=== PATIENT | male | born 1960 | race Caucasian/White ===

== ENCOUNTER → 2021-01-09 09:26 | Outpatient (CLI) | payer OTHER, SELFPAY ==
[2021-01-09 12:15] LABS: COVID19 -Nasal RAPID Negative (Negative)
== END ==
PROVIDERS: PCP Nurse Practitioner Family; Visit Provider Surgery
DX: Z01.812 Encounter for preprocedural laboratory examination (principal); Z20.822 Contact with and (suspected) exposure to COVID-19
CPT/HCPCS: 87635; C9803

== ENCOUNTER 2021-01-12 08:56 | Day surgery (SDC) | payer OTHER, SELFPAY ==
[2021-01-12 09:11] VITALS: BP 151/98; PULSE 62; RESP 16; TEMP 36.1; O2SAT 99; BMI 23.6
[2021-01-12] MEDS: LACTATED RINGERS 1,000 ML 200 ML IV (09:25)
--- NOTE | 2021-01-12 10:09 | P.HP_ITS ---
History of Present Illness History of Present Illness Date Patient Seen: 01/12/21 Time Patient Seen: 10:09 Chief complaint: SDC Narrative: The patient presents for colorectal sreening. Previous colonoscopy demonstrated benign polyps 5-10 years ago. No personal or family history of colon cancer. He has had occasional episodes of abdominal bloating constipation and diarrhea however no blood per rectum. Patient History Medical History Bowel habit changes (04/2020) Surgical History History of hernia repair (2017) Family & Social History Social History: household members spouse Tobacco & Substance use: Smoking Status Never smoker alcohol intake current alcohol intake frequency a few times a week Meds Home Medications and Allergies Home Medications Medication Instructions Recorded Confirmed Type atenolol 25 mg tablet 25 mg PO DAILY 11/11/20 11/11/20 History coenzyme Q10-red yeast rice 25 1 cap PO .qd cap 11/11/20 11/11/20 History mg-600 mg capsule Allergies Allergy/AdvReac Type Severity Reaction Status Date / Time No Known Drug Allergies Allergy Unverified 11/11/20 11:06 Review of Systems Review of Systems ROS: Yes All systems reviewed with the patient and are negative except as o therwise documented Exam Vital Signs (past 8 hours): - 01/12/21 09:11 Temperature 96.9 F L Pulse Rate 62 Respiratory Rate 16 Blood Pressure 151/98 H Pulse Oximetry 99 Oxygen Delivery Method Room Air Narrative Exam Narrative: Constitutional-he is oriented to person, place and time. No apparent distress Cardiovascular- regular rate, no peripheral edema Pulmonary-unlabored respiratory effort, no audible wheezing Abdominal-soft, non-tender, non-distended Musculoskeletal-no cyanosis or clubbing Neurological-nonfocal, normal strength throughout, Skin-warm and dry Assessment & Plan Assessment and plan (1) Personal history of colonic polyps: Status: Acute Assessment & Plan narrative: The patient requires colorectal screening and colonoscopy is recommended. Technical details were discussed. Risks, benefits, alternatives explained. Risks including but not limited to myocardial infarction, aspiration, bleeding, pain, missed lesion, incomplete examination, need for further radiographic studies, colonic perforation, and need for major abdominal surgery were discussed. All questions were answered to their s atisfaction, and they are in agreement with this plan. Time Spent With Patient Critical Care time: I spent a total of [] minutes of critical care time on this patient's care today; this time is exclusive of procedural time.
[2021-01-12] MEDS: fentaNYL 250 MCG/5 ML INJ IV (10:18)
[2021-01-12] MEDS: MIDAZOLAM 5 MG/5 ML VIAL IV (10:25)
[2021-01-12 10:40] VITALS: BP 113/78; PULSE 59; RESP 8; TEMP 36.8; O2SAT 93
--- NOTE | 2021-01-12 10:40 | PM.OP.ENDO ---
Operative Date/Time/Diagnoses Date of procedure: 01/12/21 Time of procedure: 10:40 Pre-op diagnosis: Personal history of colonic polyps Post-op diagnosis: same Procedure & Clinicians Study performed: Colonoscopy Same procedure as scheduled: Yes Indications: Personal history of colonic polyps Surgeon: Hernan Gleason Procedure Notes Procedure in detail: Medications: Conscious sedation using 5mg IV midazolam and 100mcg IV of fentanyl The history and physical was performed/updated and the patient is ASA class is 2. The procedure was discussed in detail with the patient. Potential risks complications including infection, bleeding, missed diagnosis, perforation, need for surgery, and were explained. Their questions were answered and informed consent was obtained. Patient was brought to the procedure room and placed standard monitoring equipment. The patient's vital signs were monitored continuously throughout the entire procedure. Prior to starting time-out was performed. The patient was placed in the left lateral recumbent position. Procedural sedation was administered. Examination began with a thorough inspection of the perianal area there was no evidence of fissures, fistulae, external hemorrhoids or cutaneous malignancy. The colonoscopy scope was then placed into the anal canal and was advanced to the cecum, which was identified by the ileocecal valve, the appendiceal orifice and the confluence of the taenia. The scope was then slowly withdrawn examining colon thoroughly in all directions, irrigating it of any residual stool. FINDINGS 1. No masses or polyps 2. Sigmoid diverticulosis 3. Grade 2 internal hemorrhoids The patient tolerated the procedure well. They will be discharged once criteria are met. The prep was of good/excellent quality. The withdrawl time was 7 minutes. The sedation time was 18 minutes. Specimen(s): none sent Complications: none Impression: Normal colonoscopy Post-procedure Recommendations: Colonscopy in 10 years Disposition: same day surgery
[2021-01-12 10:45] VITALS: BP 108/70; PULSE 59; RESP 10; O2SAT 93
[2021-01-12 10:50] VITALS: BP 103/69; PULSE 57; RESP 10; O2SAT 93
[2021-01-12 10:52] VITALS: BP 119/85; PULSE 60; RESP 12; TEMP 36.8; O2SAT 96
[2021-01-12 10:55] VITALS: BP 114/86; PULSE 63; RESP 16; TEMP 36.7; O2SAT 96
== END 2021-01-12 11:18 | disposition home or self-care (01) ==
PROVIDERS: PCP Nurse Practitioner Family; Referring Provider Surgery; Visit Provider Surgery
PROC: 0DJD8ZZ Inspection of Lower Intestinal Tract, Via Natural or Artificial Opening Endoscopic (ICD-10-PCS; CPT 45378; principal; 2021-01-12 10:00)
DX: Z12.11 Encounter for screening for malignant neoplasm of colon (principal); Z86.010 Personal history of colon polyps; K57.30 Diverticulosis of large intestine without perforation or abscess without bleeding; K64.1 Second degree hemorrhoids
CPT/HCPCS: 45378; 99152; J2250; J3010

== ENCOUNTER → 2021-03-09 07:29 | Outpatient (CLI) | payer OTHER, SELFPAY ==
[2021-03-09 08:39] LABS: Hematocrit 45.8 % (41-53); Hemoglobin 15.5 g/dL (13.5-17.5); Mean Corpuscular HGB Conc 33.9 % (30-36); Mean Corpuscular Volume 85.7 fL (80-100); Platelet Count 183 X10^3/uL (150-400); Red Blood Cell Count 5.34 X10^6/uL (4.5-5.9); Red Cell Distribution Width 13.9 % (11.6-14.8)
[2021-03-09 08:45] LABS: Alanine Aminotransferase 29 IU/L (<50); Albumin 4.4 g/dL (3.5-5.0); Albumin Globulin Ratio 1.9 (1.0-2.8); Alkaline Phosphatase 45 U/L (38-126); Aspartate Aminotransferase 34 IU/L (17-59); BUN Creatinine Ratio 23.8 (6-22); Bilirubin Total 0.7 mg/dL (0.2-1.3); Blood Urea Nitrogen 20 mg/dL (9-20); Calcium 9.4 mg/dL (8.4-10.2); Carbon Dioxide 33 mmol/L (22-32); Chloride 101 mmol/L (98-107); Cholesterol 163 mg/dL (140-199); Estimated Glomerular Filt Rate > 60.0 mL/min (>60); Globulin 2.3 g/dL (1.7-4.1); Glucose 95 mg/dL (80-110); HDL Cholesterol 65 mg/dL (40-60); HEMOLYSIS < 15 (0-50); LDL Cholesterol Calculated 84 mg/dL (<100); Potassium 4.7 mmol/L (3.4-5.1); Sodium 138 mmol/L (137-145); Total Protein 6.7 g/dL (6.3-8.2); Triglycerides 68 mg/dL (35-150)
[2021-03-09 09:15] LABS: Prostate Specific Antigen Scrn 1.92 ng/mL (0.1-4.0)
== END ==
PROVIDERS: PCP Nurse Practitioner Family; Referring Provider Nurse Practitioner Family; Visit Provider Nurse Practitioner Family
DX: Z00.00 Encounter for general adult medical examination without abnormal findings (principal); Z12.5 Encounter for screening for malignant neoplasm of prostate; Z13.6 Encounter for screening for cardiovascular disorders
CPT/HCPCS: 36415; 80053; 80061; 85027; G0103

== ENCOUNTER 2022-05-07 14:41 | Observation (INO) | payer OTHER, SELFPAY ==
[2022-05-07] VITALS (46 sets, daily range): BP systolic 113–176; BP diastolic 73–108; PULSE 56–80; RESP 8–37; TEMP 35.9–36.7; O2SAT 94–100; BMI 24.4; BMI 24.3
--- NOTE | 2022-05-07 14:49 | DI.RAD.S_ITS ---
PROCEDURE: XR CHEST 1V INDICATIONS: chest pain TECHNIQUE: One view of the chest was acquired. COMPARISON: None. FINDINGS: Surgical changes and devices: None. Lungs and pleura: Lungs are clear. No pleural effusions or pneumothorax. Mediastinum: Mediastinal contours appear normal. Heart size is normal. Bones and chest wall: No suspicious bony lesions. Overlying soft tissues appear unremarkable. IMPRESSION: No acute cardiopulmonary abnormality. Dictated by: Marcus Magaña M.D. on 05/07/2022 at 15:23 Approved by: Marcus Magaña M.D. on 05/07/2022 at 15:24
[2022-05-07 15:05] LABS: Add Manual Diff / Slide Review NO; Basophils Absolute Auto 100 /uL (0-100); Basophils Percent Auto 0.9 % (0-2); Eosinophils Absolute Auto 100 /uL (0-450); Eosinophils Percent Auto 1.4 % (2-4); Hematocrit 46.8 % (41-53); Hemoglobin 15.7 g/dL (13.5-17.5); Lymphocytes Absolute Auto 1500 /uL (1100-4500); Lymphocytes Percent Auto 25.9 % (25-40); Mean Corpuscular HGB Conc 33.6 % (30-36); Mean Corpuscular Volume 86.2 fL (80-100); Monocytes Absolute Auto 400 /uL (0-900); Monocytes Percent Auto 7.7 % (3-14); Neutrophils Absolute Auto 3700 /uL (1500-7000); Neutrophils Percent Auto 64.1 % (50-75); Platelet Count 199 X10^3/uL (150-400); Red Blood Cell Count 5.43 X10^6/uL (4.5-5.9); Red Cell Distribution Width 14.3 % (11.6-14.8); White Blood Cell Count 5.7 X10^3/uL (4.5-11.0)
[2022-05-07 15:13] LABS: INR 1.1 (0.9-1.3); Prothrombin Time 12.4 SECONDS (10.1-12.7)
[2022-05-07 15:15] LABS: PTT Partial Thromboplastin Tim 31 SECONDS (26-36)
[2022-05-07 15:20] LABS: Alanine Aminotransferase 33 IU/L (<50); Albumin 4.8 g/dL (3.5-5.0); Albumin Globulin Ratio 1.5 (1.0-2.8); Alkaline Phosphatase 54 U/L (38-126); Aspartate Aminotransferase 32 IU/L (17-59); BUN Creatinine Ratio 26.8 (6-22); Bilirubin Total 0.7 mg/dL (0.2-1.3); Blood Urea Nitrogen 22 mg/dL (9-20); Calcium 9.2 mg/dL (8.4-10.2); Carbon Dioxide 31 mmol/L (22-32); Chloride 101 mmol/L (98-107); Creatine Kinase 163 U/L (55-170); Estimated Glomerular Filt Rate > 60 mL/min (>60); Globulin 3.1 g/dL (1.7-4.1); Glucose 91 mg/dL (80-110); HEMOLYSIS < 15 (0-50); Lipase 77 U/L (23-300); Magnesium 2.3 mg/dL (1.6-2.3); Potassium 4.2 mmol/L (3.4-5.1); Sodium 140 mmol/L (137-145); Total Protein 7.9 g/dL (6.3-8.2)
[2022-05-07 15:31] LABS: Troponin I < 0.012 ng/mL (0.01-0.034)
[2022-05-07 15:35] LABS: CKMB % Relative Index 1.6 % (1.5-5.0); Creatine Kinase MB 2.53 ng/mL (<2.37)
--- NOTE | 2022-05-07 16:35 | ED.CHESTPAIN ---
HPI - Chest Pain General Chief Complaint: Chest Pain Stated Complaint: pain on LT side of chest,arm BP 150/100 Time Seen by Provider: 05/07/22 16:06 Source: patient Mode of arrival: Ambulatory Limitations: no limitations History of Present Illness HPI narrative: This is a 61-year-old male with history of atrial fibrillation on atenolol for the past 20 years, patient states he does take an aspirin 81 mg daily but skipped his dose today. Patient states he had left chest pain today checked his blood pressure is 150/100 and on repeat was 150/100 again patient states he had some radiation down his left arm. He states it tight. States it is resolved but when he walked to the bathroom here in the emergency department it did come back. Denies shortness of breath. He has dizziness he states mild has not noticed any association with the chest discomfort. He denies diaphoresis. No nausea no vomiting. No other GI or urinary symptoms. Patient does not have any swelling in his extremities. Patient has had similar episode couple months ago while working on his cabin he states he bruised rib on his right side which definitely cause pain on his left side went down his arm at that time. That time he would started taking an aspirin 81 mg daily. He states his blood pressure has been borderline according to his physician running 120s to 140s, they have discussed changing his atenolol and starting a statin but he is not done so. He states his atenolol was decreased from 50-25 mg several years ago. Patient states he had a treadmill test 10 years ago or more when he was was found to have atrial fibrillation. He never had a heart catheterization. He is had hernia repair 2 or 3 times remotely, appendectomy, and a ankle ORIF remotely. No tobacco, he weaned down from aquatic coffee 2 weeks ago weaned down over 1 week and has been without caffeine for the past 7 days. Family history includes his mom who has history of hypertension alcohol use but of cancer, brother has hypertension dyslipidemia he states drinks too much but has some sort of electrical issue and by his description he be getting a loop recorder and or pacemaker. He states his dad of cancer but did not have any cardiac issues. Related Data Home Medications Medication Instructions Recorded Confirmed coenzyme Q10-red yeast rice 25 1 cap PO .qd 11/11/20 01/07/22 mg-600 mg capsule Previous Rx's Medication Instructions Recorded atenolol 25 mg tablet 25 mg PO DAILY #90 tabs 01/07/22 Allergies Allergy/AdvReac Type Severity Reaction Status Date / Time No Known Drug Allergies Allergy Verified 05/07/22 14:51 Review of Systems Review of Systems ROS Unobtainable: All systems reviewed & are unremarkable except as noted in HPI and below Patient History Medical History Bowel habit changes (04/2020) Hypertension Iliotibial band tendinitis of left side Skin lesions, generalized Surgical History History of hernia repair (2018) Social History household members: spouse Smoking Status: Never smoker alcohol intake: current Smoking Status: Never smoker alcohol intake frequency: a few times a week Substance Use Type: does not use Exam Narrative Exam Narrative: GENERAL: Alert and oriented x three, male in mild distress. HEENT: Head normocephalic, atraumatic, EOMI, pupils reactive, face symmetric, moist mucous membranes NECK: Supple, full range of motion CARDIOVASCULAR: Regular rate and rhythm without murmurs, rubs or gallops. No JVD. No swelling bilateral lower extremities. RESPIRATORY: Breath sounds equal bilaterally, no wheezes rales or rhonchi. No tachypnea. Speaks in full sentences. ABDOMEN: Soft, nontender. Normoactive bowel sounds all 4 quadrants. No guarding or rebound, rigidity, no mass : No CVA tenderness EXTREMITIES: Normal range of motion, no clubbing or edema. Neurovascularly intact NEUROLOGICAL: Cranial nerves II through XII grossly intact. Moving all extremities SKIN: Warm, dry, no petechiae, no rashes or lesions, no erythema, vesicles or skin changes to the torso. Initial Vital Signs Initial Vital Signs: Vital Signs Temperature 98.0 F 05/07/22 14:43 Pulse Rate 66 05/07/22 14:43 Respiratory Rate 14 05/07/22 14:43 Blood Pressure 176/108 H 05/07/22 14:43 Pulse Oximetry 98 05/07/22 14:43 Oxygen Delivery Method 05/07/22 14:43 Scores HEART Score Heart Score history: Moderately Suspicious Heart Score EKG: Normal Heart Score Age: 45-64 years old Heart Score risk factors: 1-2 risk factors Heart Score troponin: < or = to normal limit Heart Score Total: 3 Course Orders Ordered: ED Orders 05/07/22 14:49 XR chest 1V Stat 05/07/22 14:50 Complete Blood Count AUTO DIFF Stat Comprehensive Metabolic Panel Stat Lipase Stat Magnesium Stat Partial Thromboplastin Time Stat Prothrombin Time INR Stat Troponin & CK Cardiac Panel Stat 05/07/22 14:54 EKG-12 Lead Stat 05/07/22 17:06 EKG-12 Lead Stat 05/07/22 17:16 Trop I [Troponin I] Stat Nitroglycerin (Nitroglycerin 0.4 Mg Sl Tab) 0.4 mg SL [id number] PRN PRN Reason: Chest Pain Last Admin: 05/07/22 17:25 Dose: 0.4 mg Documented By: AT Discontinued Medications Aspirin (Aspirin 81 Mg Chew Tab) 324 mg PO NOW ONE Stop: 05/07/22 17:07 Last Admin: 05/07/22 17:17 Dose: 324 mg Documented By: AT Vital Signs Vital signs: Vital Signs - 8 hr 05/07/22 14:43 05/07/22 14:45 05/07/22 14:45 Temperature 98.0 F Pulse Rate 66 69 Respiratory Rate 14 Blood Pressure 176/108 H 176/108 H Pulse Oximetry 98 98 Oxygen Delivery Method Room Air Room Air 05/07/22 15:00 05/07/22 15:00 05/07/22 15:30 Temperature Pulse Rate 59 L Respiratory Rate Blood Pressure 150/90 H 142/83 H Pulse Oximetry 100 Oxygen Delivery Method Room Air 05/07/22 15:30 05/07/22 16:00 05/07/22 16:00 Temperature Pulse Rate 60 62 Respiratory Rate Blood Pressure 135/85 Pulse Oximetry 98 97 Oxygen Delivery Method Room Air Room Air 05/07/22 16:30 05/07/22 16:30 05/07/22 17:25 Temperature Pulse Rate 59 L 62 Respiratory Rate Blood Pressure 131/84 157/105 H Pulse Oximetry 98 Oxygen Delivery Method Room Air 05/07/22 17:00 05/07/22 17:00 05/07/22 17:27 Temperature Pulse Rate 61 60 Respiratory Rate 17 21 Blood Pressure 158/91 H Pulse Oximetry 98 97 Oxygen Delivery Method Room Air 05/07/22 17:30 05/07/22 17:31 05/07/22 17:31 Temperature Pulse Rate 64 67 Respiratory Rate 13 12 Blood Pressure 137/85 Pulse Oximetry 98 97 Oxygen Delivery Method Room Air 05/07/22 17:35 05/07/22 17:35 Temperature Pulse Rate 67 Respiratory Rate 13 Blood Pressure 126/82 Pulse Oximetry 95 Oxygen Delivery Method Room Air MDM - Chest Pain Lab Data Result diagrams: 05/07/22 14:50 05/07/22 14:50 Labs: Lab Results 05/07/22 05/07/22 05/07/22 Range/Units 14:50 14:50 14:50 WBC 5.7 (4.5-11.0) X10^3/uL RBC 5.43 (4.5-5.9) X10^6/uL Hgb 15.7 (13.5-17.5) g/dL Hct 46.8 (41-53) % MCV 86.2 (80-100) fL MCH 29.0 (26-34) PG MCHC 33.6 (30-36) % RDW 14.3 (11.6-14.8) % Plt Count 199 (150-400) X10^3/uL Neut % (Auto) 64.1 (50-75) % Lymph % (Auto) 25.9 (25-40) % [place] % (Auto) 7.7 (3-14) % Eos % (Auto) 1.4 L (2-4) % Baso % (Auto) 0.9 (0-2) % Neut # (Auto) 3700 (9593-6954) /uL Lymph # (Auto) 1500 (4680-7092) /uL [place] # (Auto) 400 (0-900) /uL Eos # (Auto) 100 (0-450) /uL Baso # (Auto) 100 (0-100) /uL PT 12.4 (10.1-12.7) SECONDS INR 1.1 (0.9-1.3) APTT 31 (26-36) SECONDS Sodium 140 (137-145) mmol/L Potassium 4.2 (3.4-5.1) mmol/L Chloride 101 (98-107) mmol/L Carbon Dioxide 31 (22-32) mmol/L BUN 22 H (9-20) mg/dL Creatinine 0.82 (0.66-1.25) mg/dL Estimated GFR > 60 (>60) mL/min BUN/Creatinine Ratio 26.8 H (6-22) Glucose 91 (80-110) mg/dL Calcium 9.2 (8.4-10.2) mg/dL Magnesium 2.3 (1.6-2.3) mg/dL Total Bilirubin 0.7 (0.2-1.3) mg/dL AST 32 (17-59) IU/L ALT 33 (<50) IU/L Alkaline Phosphatase 54 (38-126) U/L Total Creatine Kinase 163 (55-170) U/L CK-MB (CK-2) 2.53 H (<2.37) ng/mL CK-MB (CK-2) Rel Index 1.6 (1.5-5.0) % Troponin I < 0.012 (0.01-0.034) ng/mL Total Protein 7.9 (6.3-8.2) g/dL Albumin 4.8 (3.5-5.0) g/dL Globulin 3.1 (1.7-4.1) g/dL Albumin/Globulin Ratio 1.5 (1.0-2.8) Lipase 77 (23-300) U/L 05/07/22 Range/Units 17:16 WBC (4.5-11.0) X10^3/uL RBC (4.5-5.9) X10^6/uL Hgb (13.5-17.5) g/dL Hct (41-53) % MCV (80-100) fL MCH (26-34) PG MCHC (30-36) % RDW (11.6-14.8) % Plt Count (150-400) X10^3/uL Neut % (Auto) (50-75) % Lymph % (Auto) (25-40) % [place] % (Auto) (3-14) % Eos % (Auto) (2-4) % Baso % (Auto) (0-2) % Neut # (Auto) (6808-2028) /uL Lymph # (Auto) (4985-4939) /uL [place] # (Auto) (0-900) /uL Eos # (Auto) (0-450) /uL Baso # (Auto) (0-100) /uL PT (10.1-12.7) SECONDS INR (0.9-1.3) APTT (26-36) SECONDS Sodium (137-145) mmol/L Potassium (3.4-5.1) mmol/L Chloride (98-107) mmol/L Carbon Dioxide (22-32) mmol/L BUN (9-20) mg/dL Creatinine (0.66-1.25) mg/dL Estimated GFR (>60) mL/min BUN/Creatinine Ratio (6-22) Glucose (80-110) mg/dL Calcium (8.4-10.2) mg/dL Magnesium (1.6-2.3) mg/dL Total Bilirubin (0.2-1.3) mg/dL AST (17-59) IU/L ALT (<50) IU/L Alkaline Phosphatase (38-126) U/L Total Creatine Kinase (55-170) U/L CK-MB (CK-2) (<2.37) ng/mL CK-MB (CK-2) Rel Index (1.5-5.0) % Troponin I < 0.012 (0.01-0.034) ng/mL Total Protein (6.3-8.2) g/dL Albumin (3.5-5.0) g/dL Globulin (1.7-4.1) g/dL Albumin/Globulin Ratio (1.0-2.8) Lipase (23-300) U/L Imaging Data Chest x-ray: Radiologist's Impression: [address] [address] XRay Report Signed Patient: Luis Carlos oJe MR#: [id number] : 1960 Acct:[id number] Age/Sex: 61 / M Date of Service: 05/07/22 Loc: ED Accession Number: [id number] ?? Procedure: XR chest 1V Ordering Provider: Barbi Henderson D.O. PROCEDURE:? XR CHEST 1V ? INDICATIONS:? chest pain ? TECHNIQUE:? One view of the chest was acquired.? ? COMPARISON:? None. ? FINDINGS:? ? Surgical changes and devices:? None.? ? Lungs and pleura:? Lungs are clear.? No pleural effusions or pneumothorax.? ? Mediastinum:? Mediastinal contours appear normal.? Heart size is normal.? ? Bones and chest wall:? No suspicious bony lesions.? Overlying soft tissues appear unremarkable.? ? IMPRESSION:? No acute cardiopulmonary abnormality. ? ? ? Dictated by: Marcus Magaña M.D. on 05/07/2022 at 15:23 ? ? Approved by: Marcus Magaña M.D. on 05/07/2022 at 15:24? ECG Data Attestation: I personally reviewed and interpreted this ECG as follows: Interpretation: Sinus rhythm rate of 63 LA 186 QRS 82 and QTC 403. No acute ST changes or depression noted. T-wave inverted in lead 3 but not appreciated in 2 or AVF. EKG 2. Shows sinus rhythm rate of 60 LA 186 QRS 88 QTC of 404. No acute ST elevation depression noted. Patient's lead 3 appears similar but no changes appreciated in lead 2 or AVF. MDM Narrative Medical decision making narrative: This is a 61-year-old male with left-sided chest pain did radiate down his arm today, patient's pain resolved but then returned after walking to the bathroom. Patient does not have acute EKG changes on initial EKG, CBC, CMP, troponin are negative. Patient CK-MB is 2.53. Patient was hypertensive upon arrival but improved without any intervention to 130/84. Discussed with patient would like to keep for chest pain observation even if after repeating 2nd troponin and EKG there are no additional changes. Discussed with hospitalist, we can do serial troponins and echo but do not have stress testing capabilities until Tuesday morning. Patient is reluctant to stay until Tuesday. Discussed with Cardiology, Dr. Trejo, agrees with plan for serial tropes and echo in the morning with discharge home with plan for just as an outpatient unless there are changes during patient's stay overnight. Re-contacted for Martín who accepts for observation. Discussed with patient and he is agreeable. Discharge Plan Departure Patient Disposition: Admitted as Observation Clinical Impression: Chest pain Prescriptions: No Action co Q10-red yeast rice 25-600 mg capsule 1 cap PO .qd Label Comments: patient took a break but will resume atenolol 25 mg tablet 25 mg PO DAILY Qty: 90 1RF Referrals: Zana Shipman, DO [Primary Care Provider] -
[2022-05-07] MEDS: ASPIRIN 81 MG CHEW TAB 324 MG PO (17:17)
[2022-05-07] MEDS: NITROGLYCERIN 0.4 MG SL TAB SL (17:25)
[2022-05-07 18:00] LABS: Troponin I < 0.012 ng/mL (0.01-0.034)
--- NOTE | 2022-05-07 18:39 | DI.ECHO.S_ITS ---
[facility]---------+ [facility] +---------+ : : [id number] : : : : [id number] : : : : Phone: [phone]---------+ Echocardiogram Report + + :Name: ORION BEARD Study Date: 05/08/2022 Height: 71 in : :[facility] ReadingLocation: Weight: 175 lb : : Gender: Male BSA: 2.0 m2 : :: 1960 Age: 61 yrs BP: 139/86 mmHg: :Reason For Study: CHEST PAIN : :Ordering Physician: LIZET, : :GHULAM SOMMER Performed By: Stefany Husain : :Referring: GHULAM HINDS : + + Interpretation Summary Normal sinus rhythm. Normal LV size, wall thickness, wall motion and LV systolkic function. EF is 60-65%. No valvular abnormalities. Normal chamber sizes. No prior study available for comparison. Procedure: A two-dimensional transthoracic echocardiogram with color flow and Doppler was performed. The study quality was technically adequate. There is no prior echocardiogram noted for this patient. The patient was in sinus rhythm with heart rates between 65-80 bpm during the exam. Left Ventricle: The left ventricle is normal in size. Proximal septal thickening is noted. The ejection fraction is estimated to be 60-65%. Right Ventricle: The right ventricle is normal size. Atria: The left atrial size is normal. Right atrial size is normal. There is no Doppler evidence for an interatrial shunt. Mitral Valve: The mitral valve is normal in structure and function. There is mild mitral regurgitation. Aortic Valve: The aortic valve is trileaflet. The aortic valve opens well. There is no aortic valve stenosis. There is mild aortic regurgitation. Tricuspid Valve: The tricuspid valve leaflets are thin and pliable. There is mild tricuspid regurgitation. The right ventricular systolic pressure is estimated to be at least 32 mmHg based on an estimated right atrial pressure of 3 mm Hg. Pulmonic Valve: The pulmonic valve is not well seen, but is grossly normal. There is mild pulmonic regurgitation. Great Vessels: The aortic root is mildly dilated. The ascending aorta is moderately enlarged. The IVC is of normal diameter and collapses less than 50% with a sniff. This suggests a right atrial pressure of 8 mm Hg. Pericardium/ Pleura There is no pericardial effusion. There is no pleural effusion. MMode/2D Measurements & Calculations LVIDd: 4.1 cm LVOT diam: 2.5 cm LVIDs: 2.9 cm Ao root diam: 4.0 cm FS: 31.1 % asc Aorta Diam: 4.3 cm IVSd: 0.97 cm Ao Arch Diam (Prox Trans): 3.4 cm LVPWd: 0.98 cm LV izaguirre. diameter/BSA (cm/m^2): 2.1 LV sys. diameter/BSA (cm/m^2): 1.4 LA A2 area: 15.3 cm2 RA long axis: 5.6 cm LA A4 area: 17.7 cm2 RA area: 12.9 cm2 LA length (vol): 5.9 cm RA vol: 25.1 ml LA vol: 39.2 ml RA : 12.6 ml/m2 LA vol index: 19.7 ml/m2 IVC diam: 2.0 cm RVD1 (basal): 3.7 cm RVD2 (mid): 3.3 cm Doppler Measurements & Calculations Ao V2 max: 143.1 cm/sec LVOT Max Patrick: 149.3 cm/sec Ao V2 mean: 100.0 cm/sec LV V1 max P.9 mmHg Ao max P.2 mmHg LV V1 VTI: 31.0 cm Ao mean P.6 mmHg VALERY(I,D): 4.8 cm2 Ao V2 VTI: 30.9 cm VALERY(V,D): 5.0 cm2 sev ratio: 1.0 VALERY indexed to BSA (cm^2/m^2): 2.4 MV E max patrick: 82.2 cm/sec TR max patrick: 256.6 cm/sec MV A max patrick: 74.5 cm/sec TR max P.3 mmHg MV E/A: 1.1 PA V2 max: 99.7 cm/sec Med Peak E' Patrick: 5.6 cm/sec PA V2 mean: 69.7 cm/sec E/E' med: 14.6 PA mean P.1 mmHg Lat Peak E' Patrick: 7.9 cm/sec PA pr(Accel): 34.5 mmHg E/E' lat: 10.4 E/e' average: 12.5 MV dec time: 0.21 sec SV(LVOT): 147.3 ml Electronically signed by: Shyla Cesar M.D. on Reading Physician:05/08/2022 12:17 PM
[2022-05-07 19:28] LABS: COVID19 -Nasal RAPID Negative (Negative)
[2022-05-07 20:08] LABS: Hemoglobin A1C% w Est Avg Glu 5.2 % (4.0-6.0)
--- NOTE | 2022-05-07 22:50 | P.HP_ITS ---
History of Present Illness History of Present Illness Date Patient Seen: 05/07/22 Time Patient Seen: 22:50 Chief complaint: pain on LT side of chest,arm BP 150/100 Narrative: Nicolas Joe is 61 y.o. male with a hypertension and a history of being diagnosed with atrial fibrillation in his early 40s, presented to the ED w/chest pain radiating to his left arm. States his blood pressure is normally 120/80s. He took his bp at home and his systolic was in the 150s. He called his PCP's office and was advised to to to the ED. He denies radiation to his jaw, palpit ations, h/a, nausea or vomiting. Chest x-ray indicated no cardiopulmonary abnormality. He is afebrile, blood pressure 113/73 heart rate 67 respiratory rate 16 oxygen saturation of 94% on room air he weighs 79.3 kg with a BMI of 24.4. CBC is unremarkable, coagulation is also unremarkable, his A1c is 5.2, CK-MB is slightly elevated 2.5 3, the 1st 2 troponins were negative and a 3rd 1 is pending for approximately now. COVID- 19 PCR is negative. Patient History Medical History Bowel habit changes (04/2020) Hypertension Iliotibial band tendinitis of left side Skin lesions, generalized Surgical History History of hernia repair (2017) Family & Social History Family History Mother Ovarian cancer Hypertension Father Pancreatic cancer Brother Hypertension Social History: household members spouse Safety & Behavioral: Feels Safe in Current Yes Environment Been Physically Hurt or No Threatened By a Person Tobacco & Substance use: Smoking Status Never smoker alcohol intake current alcohol intake frequency a few times a week Substance Use Type does not use Comment: Recently quit drinking coffee. Meds Home Medications and Allergies Home Medications Medication Instructions Recorded Confirmed Type coenzyme Q10-red yeast rice 25 1 cap PO .qd 11/11/20 01/07/22 History mg-600 mg capsule atenolol 25 mg tablet 25 mg PO DAILY #90 tabs 01/07/22 01/07/22 Rx Allergies Allergy/AdvReac Type Severity Reaction Status Date / Time No Known Drug Allergies Allergy Verified 05/07/22 14:51 Review of Systems Review of Systems ROS: Yes All systems reviewed with the patient and are negative except as otherwise documented Exam Vital Signs (past 8 hours): - 05/07/22 15:00 05/07/22 15:00 05/07/22 15:30 Pulse Rate 59 L Respiratory Rate Blood Pressure 150/90 H 142/83 H Pulse Oximetry 100 Oxygen Delivery Method Room Air 05/07/22 15:30 05/07/22 16:00 05/07/22 16:00 Pulse Rate 60 62 Respiratory Rate Blood Pressure 135/85 Pulse Oximetry 98 97 Oxygen Delivery Method Room Air Room Air 05/07/22 16:30 05/07/22 16:30 05/07/22 17:25 Pulse Rate 59 L 62 Respiratory Rate Blood Pressure 131/84 157/105 H Pulse Oximetry 98 Oxygen Delivery Method Room Air 05/07/22 17:00 05/07/22 17:00 05/07/22 17:27 Pulse Rate 61 60 Respiratory Rate 17 21 Blood Pressure 158/91 H Pulse Oximetry 98 97 Oxygen Delivery Method Room Air 05/07/22 17:30 05/07/22 17:31 05/07/22 17:31 Pulse Rate 64 67 Respiratory Rate 13 12 Blood Pressure 137/85 Pulse Oximetry 98 97 Oxygen Delivery Method Room Air 05/07/22 17:35 05/07/22 17:35 05/07/22 17:40 Pulse Rate 67 Respiratory Rate 13 Blood Pressure 126/82 121/79 Pulse Oximetry 95 Oxygen Delivery Method Room Air 05/07/22 17:40 05/07/22 17:45 05/07/22 17:45 Pulse Rate 63 62 Respiratory Rate 8 L 12 Blood Pressure 127/79 Pulse Oximetry 95 96 Oxygen Delivery Method 05/07/22 17:50 05/07/22 17:50 05/07/22 17:55 Pulse Rate 61 Respiratory Rate 11 L Blood Pressure 133/83 127/80 Pulse Oximetry 97 Oxygen Delivery Method 05/07/22 17:55 05/07/22 18:00 05/07/22 18:00 Pulse Rate 59 L 59 L Respiratory Rate 13 10 L Blood Pressure 124/82 Pulse Oximetry 96 96 Oxygen Delivery Method 05/07/22 18:05 05/07/22 18:05 05/07/22 19:55 Pulse Rate 59 L 59 L Respiratory Rate 10 L 15 Blood Pressure 123/80 Pulse Oximetry 97 97 Oxygen Delivery Method Room Air 05/07/22 19:55 05/07/22 20:00 05/07/22 20:00 Pulse Rate 57 L Respiratory Rate 14 Blood Pressure 127/80 123/82 Pulse Oximetry 98 Oxygen Delivery Method 05/07/22 20:05 05/07/22 20:05 05/07/22 20:10 Pulse Rate 58 L 58 L Respiratory Rate 10 L 17 Blood Pressure 119/79 Pulse Oximetry 97 97 Oxygen Delivery Method 05/07/22 20:10 05/07/22 20:15 05/07/22 20:15 Pulse Rate 58 L Respiratory Rate 15 Blood Pressure 125/83 128/79 Pulse Oximetry 97 Oxygen Delivery Method 05/07/22 20:20 05/07/22 20:20 05/07/22 20:25 Pulse Rate 56 L Respiratory Rate 11 L Blood Pressure 126/80 123/78 Pulse Oximetry 98 Oxygen Delivery Method 05/07/22 20:25 05/07/22 20:30 05/07/22 20:30 Pulse Rate 58 L 58 L Respiratory Rate 14 11 L Blood Pressure 124/79 Pulse Oximetry 97 97 Oxygen Delivery Method 05/07/22 20:35 05/07/22 20:35 05/07/22 20:40 Pulse Rate 59 L Respiratory Rate 10 L Blood Pressure 127/82 122/82 Pulse Oximetry 98 Oxygen Delivery Method 05/07/22 20:40 05/07/22 20:45 05/07/22 20:45 Pulse Rate 60 59 L Respiratory Rate 13 12 Blood Pressure 123/85 Pulse Oximetry 95 96 Oxygen Delivery Method 05/07/22 20:50 05/07/22 20:50 05/07/22 20:55 Pulse Rate 59 L Respiratory Rate 15 Blood Pressure 125/89 127/89 Pulse Oximetry 97 Oxygen Delivery Method 05/07/22 20:55 05/07/22 21:00 05/07/22 21:00 Pulse Rate 72 80 Respiratory Rate 25 H 37 H Blood Pressure 133/92 H Pulse Oximetry 97 95 Oxygen Delivery Method 05/07/22 21:05 05/07/22 21:05 05/07/22 21:10 Pulse Rate 68 Respiratory Rate 17 Blood Pressure 131/82 117/80 Pulse Oximetry 95 Oxygen Delivery Method 05/07/22 21:10 05/07/22 21:15 05/07/22 21:15 Pulse Rate 69 67 Respiratory Rate 16 16 Blood Pressure 118/78 Pulse Oximetry 94 94 Oxygen Delivery Method 05/07/22 21:20 05/07/22 21:20 05/07/22 21:25 Pulse Rate 66 Respiratory Rate 18 Blood Pressure 117/79 119/80 Pulse Oximetry 94 Oxygen Delivery Method 05/07/22 21:25 05/07/22 21:30 05/07/22 21:30 Pulse Rate 67 67 Respiratory Rate 18 16 Blood Pressure 113/79 Pulse Oximetry 94 94 Oxygen Delivery Method 05/07/22 21:35 05/07/22 21:35 05/07/22 21:40 Pulse Rate 67 Respiratory Rate 18 Blood Pressure 119/81 129/80 Pulse Oximetry 94 Oxygen Delivery Method 05/07/22 21:40 05/07/22 21:45 05/07/22 21:45 Pulse Rate 68 67 Respiratory Rate 14 22 Blood Pressure 133/80 Pulse Oximetry 94 94 Oxygen Delivery Method 05/07/22 21:50 05/07/22 21:50 05/07/22 21:55 Pulse Rate 69 Respiratory Rate 17 Blood Pressure 119/75 113/73 Pulse Oximetry 94 Oxygen Delivery Method 05/07/22 21:55 Pulse Rate 67 Respiratory Rate 16 Blood Pressure Pulse Oximetry 94 Oxygen Delivery Method Oxygen Delivery Method Room Air Narrative Exam Narrative: Gen: Alert, oriented, well-developed and healthy appearing 61 y.o. male, NAD HEENT: normocephalic, atraumatic, conjunctiva clear, sclera non-icteric, oral mucosa pink and moist Neck: supple, full ROM, no JVD, trachea is midline Resp: Lungs CTA, non-labored breathing CV: RRR, no murmur or rubs Abd: soft, non-tender, normoactive BTs Skin: no lesions or rashes, dry and intact Neuro: Alert and oriented X 4 w/no focal deficits. Speech clear and coherent. Extremities: moves all 4 extremities, is ambulatory, negative Martín?s sign, no LE edema Psyche: normal mood and affect. Objective Labs Result Diagrams: 05/07/22 14:50 05/07/22 14:50 Labs: Laboratory Results - last 24 hr 05/07/22 05/07/22 05/07/22 14:50 14:50 14:50 WBC 5.7 RBC 5.43 Hgb 15.7 Hct 46.8 MCV 86.2 MCH 29.0 MCHC 33.6 RDW 14.3 Plt Count 199 Neut % (Auto) 64.1 Lymph % (Auto) 25.9 [place] % (Auto) 7.7 Eos % (Auto) 1.4 L Baso % (Auto) 0.9 Neut # (Auto) 3700 Lymph # (Auto) 1500 [place] # (Auto) 400 Eos # (Auto) 100 Baso # (Auto) 100 PT 12.4 INR 1.1 APTT 31 Sodium 140 Potassium 4.2 Chloride 101 Carbon Dioxide 31 BUN 22 H Creatinine 0.82 Estimated GFR > 60 BUN/Creatinine Ratio 26.8 H Glucose 91 Hemoglobin A1c Calcium 9.2 Magnesium 2.3 Total Bilirubin 0.7 AST 32 ALT 33 Alkaline Phosphatase 54 Total Creatine Kinase 163 CK-MB (CK-2) 2.53 H CK-MB (CK-2) Rel Index 1.6 Troponin I < 0.012 Total Protein 7.9 Albumin 4.8 Globulin 3.1 Albumin/Globulin Ratio 1.5 Lipase 77 SARS-CoV-2 (PCR) 05/07/22 05/07/22 05/07/22 14:50 17:16 18:55 WBC RBC Hgb Hct MCV MCH MCHC RDW Plt Count Neut % (Auto) Lymph % (Auto) [place] % (Auto) Eos % (Auto) Baso % (Auto) Neut # (Auto) Lymph # (Auto) [place] # (Auto) Eos # (Auto) Baso # (Auto) PT INR APTT Sodium Potassium Chloride Carbon Dioxide BUN Creatinine Estimated GFR BUN/Creatinine Ratio Glucose Hemoglobin A1c 5.2 Calcium Magnesium Total Bilirubin AST ALT Alkaline Phosphatase Total Creatine Kinase CK-MB (CK-2) CK-MB (CK-2) Rel Index Troponin I < 0.012 Total Protein Albumin Globulin Albumin/Globulin Ratio Lipase SARS-CoV-2 (PCR) Negative Assessment & Plan Assessment & Plan narrative: Nicolas Joe is placed into observation further evaluation and workup of chest pain Chest pain r/o ACS, acute, present on admission ? Echo in am ? Pharmacological stress test recommended as outpatient followup ? Start ASA 81 mg ? Received nitro X 1 in the ED ? EKG shows no ischemic changes ? Trend troponin X 3, first 2 NL Hypertension ? Start/continue motoprolol 25 mg po qam HLD ? Lipid panel, pending ? Start/continue atorvastatin 40 mg po at bedtime Risk stratification ? Fasting lipid panel scheduled for 0500 labs ? A1c 5.2% Other independent historians: , Olimpia Discussion of results, plan of care with independent HCP/other ED provider Reviewed outside records: N/A VTE Prophylaxis: Wells risk score 0 Enoxaparin 40 mg subQ once daily Bilateral SCDs Patient is placed into observation as his stay is not expected to exceed 2 midnights. FEN: IV fluids: saline lock, diet: heart health, labs: CBC, C/BMP, liver enzymes, Mag, PT/INR Consultants None Dispo: probable d/c to home Code status: Full as discussed with the patient who identifies his Olimpia as his surrogate and POA. Advanced care planning 0 minutes. [X] I have utilized all available immediate resources to obtain, update, or review of the patient's current medications VTE Deep Vein Thrombosis/Pulmonary Embolism Present on Admission: No MIPS - Admit I confirm the patient?s Advance Care Plan is present, Code status is documented, Surrogate decision maker is in patient?s record: Yes MIPS - DC The patient has current or prior documentation of left ventricular ejection fraction (LVEF) less than 40%, or moderate or severely depressed left ventricular systolic function.: No COVID-19 COVID-19 status: Negative Result date/Date tested (Pos, Neg/Pending): 05/07/22
[2022-05-08] VITALS (7 sets, daily range): BP systolic 122–139; BP diastolic 85–90; PULSE 66–70; RESP 18; TEMP 35.8–36.1; O2SAT 95–99
[2022-05-08 00:03] LABS: Troponin I < 0.012 ng/mL (0.01-0.034)
[2022-05-08 05:50] LABS: Add Manual Diff / Slide Review NO; Basophils Absolute Auto 0 /uL (0-100); Basophils Percent Auto 0.7 % (0-2); Eosinophils Absolute Auto 100 /uL (0-450); Eosinophils Percent Auto 2.1 % (2-4); Hematocrit 45.2 % (41-53); Hemoglobin 15.1 g/dL (13.5-17.5); Lymphocytes Absolute Auto 1400 /uL (1100-4500); Lymphocytes Percent Auto 25.8 % (25-40); Mean Corpuscular HGB Conc 33.4 % (30-36); Mean Corpuscular Hemoglobin 28.7 PG (26-34); Mean Corpuscular Volume 85.7 fL (80-100); Monocytes Absolute Auto 500 /uL (0-900); Neutrophils Absolute Auto 3400 /uL (1500-7000); Neutrophils Percent Auto 62.4 % (50-75); Platelet Count 188 X10^3/uL (150-400); Red Blood Cell Count 5.27 X10^6/uL (4.5-5.9); White Blood Cell Count 5.5 X10^3/uL (4.5-11.0)
[2022-05-08 06:07] LABS: Alanine Aminotransferase 30 IU/L (<50); Albumin Globulin Ratio 1.6 (1.0-2.8); Alkaline Phosphatase 48 U/L (38-126); Aspartate Aminotransferase 28 IU/L (17-59); BUN Creatinine Ratio 27.6 (6-22); Bilirubin Total 0.7 mg/dL (0.2-1.3); Blood Urea Nitrogen 21 mg/dL (9-20); Calcium 8.6 mg/dL (8.4-10.2); Carbon Dioxide 28 mmol/L (22-32); Chloride 103 mmol/L (98-107); Estimated Glomerular Filt Rate > 60 mL/min (>60); Globulin 2.5 g/dL (1.7-4.1); Glucose 79 mg/dL (80-110); HEMOLYSIS < 15 (0-50); Potassium 3.9 mmol/L (3.4-5.1); Sodium 139 mmol/L (137-145); Total Protein 6.5 g/dL (6.3-8.2)
[2022-05-08 06:09] LABS: Cholesterol 183 mg/dL (140-199); HDL Cholesterol 42 mg/dL (40-60); LDL Cholesterol Calculated 108 mg/dL (<100); Magnesium 2.2 mg/dL (1.6-2.3); Triglycerides 165 mg/dL (35-150)
[2022-05-08 06:35] LABS: TSH w/ Reflex to FT4 3.51 uIU/mL (0.47-4.68)
[2022-05-08] MEDS: METOPROLOL ER 25 MG TABLET PO (08:45)
[2022-05-08] MEDS: ASPIRIN EC 81 MG TABLET PO (08:45)
[2022-05-08] MEDS: ENOXAPARIN 40 MG/0.4 ML SYRINGE SUBCUT (08:45)
--- NOTE | 2022-05-08 13:28 | P.DS_ITS ---
History of Present Illness History of Present Illness Date Patient Seen: 05/08/22 Chief complaint: pain on LT side of chest,arm BP 150/100 Narrative: Per admitting provider, Nicolas Joe is 61 y.o. male with a hypertension and a history of being diagnosed with atrial fibrillation in his early 40s, presented to the ED w/chest pain radiating to his left arm. States his blood pressure is normally 120/80s. He took his bp at home and his systolic was in the 150s. He called his PCP's office and was advised to to to the ED. He denies radiation to his jaw, palpitations, h/a, nausea or vomiting. Chest x-ray indicated no cardiopulmonary abnormality. He is afebrile, blood pressure 113/73 heart rate 67 respiratory rate 16 oxygen saturation of 94% on room air he weighs 79.3 kg with a BMI of 24.4. CBC is unremarkable, coagulation is also unremarkable, his A1c is 5.2, CK-MB is slightly elevated 2.5 3, the 1st 2 troponins were negative and a 3rd 1 is pending for approximately now. COVID- 19 PCR is negative. Discharge Providers Provider Date of admission: 05/07/22 18:34 Discharge Date: 05/08/22 Primary care physician: Zana Shipman DO Discharge provider: Sekou Perez DO Summary Hospital Course Discharge Diagnosis: Chest pain r/o ACS, acute, present on admission Hypertension HLD Possible history of Paroxysmal atrial fibrillation. Hospital Course: This is a 61-year-old male with a past medical history of hypertension and hyperlipidemia, possible prior atrial fibrillation not on AC who presented with left-sided chest pain. Given intermediate risk he was admitted for further sydnee luation, and had serial negative troponins and an unremarkable echocardiogram. He had no recurrence of chest pain. Stress testing was unavailable at [facility] over the weekend (admitted on a Tuesday evening, and there is no availability for transfer over the weekend). Shared decision-making was performed with the patient, whom elected for discharge home at this time given reassuring evaluation pointing towards a low risk chest pain presentation. He does plan to follow-up with his primary care provider this week, and does understand that he will need further risk stratification with outpatient stress testing in the near future. Outpatient non-nuclear stress testing was ordered by me, though he may need another order from his primary care provider depending on his insurance. No medication changes are recommended at the time of discharge. Consider additionally holter monitor given prior reported history of atrial fibrillation (no prior documentation in outpatient notes and only me ntions unknown arrythmia previously) and consideration of stroke prevention with aspirin if atrial fibrillation is confirmed. Telemetry here was unremarkable as was his EKGs. Time Spent with Patient Time spent: Greater than 30 minutes Exam Vital Signs (past 8 hours): - 05/08/22 07:00 05/08/22 08:45 05/08/22 09:58 Temperature 96.5 F L Pulse Rate 68 68 66 Respiratory Rate 18 Blood Pressure 139/86 Pulse Oximetry 95 Oxygen Delivery Method Oxygen Flow Rate 0 05/08/22 08:20 05/08/22 12:00 05/08/22 12:48 Temperature 97 F L Pulse Rate 70 Respiratory Rate 18 Blood Pressure 122/90 Pulse Oximetry 98 97 99 Oxygen Delivery Method Room Air Room Air Oxygen Flow Rate 0 Oxygen Delivery Method Room Air Oxygen Flow Rate 0 Narrative Exam Narrative: Gen: Alert, oriented, well-developed and healthy appearing 61 y.o. male, NAD HEENT: normocephalic, atraumatic, Resp: non-labored breathing CV: RRR Neuro: Alert and oriented X 4 w/no focal deficits. Speech clear and coherent. Extremities: no edema or joint effusions Psyche: normal mood and affect. Objective Labs Result Diagrams: 05/08/22 04:58 05/08/22 04:58 Labs: Laboratory Results - last 24 hr 05/07/22 05/07/22 05/07/22 14:50 14:50 14:50 WBC 5.7 RBC 5.43 Hgb 15.7 Hct 46.8 MCV 86.2 MCH 29.0 MCHC 33.6 RDW 14.3 Plt Count 199 Neut % (Auto) 64.1 Lymph % (Auto) 25.9 [place] % (Auto) 7.7 Eos % (Auto) 1.4 L Baso % (Auto) 0.9 Neut # (Auto) 3700 Lymph # (Auto) 1500 [place] # (Auto) 400 Eos # (Auto) 100 Baso # (Auto) 100 PT 12.4 INR 1.1 APTT 31 Sodium 140 Potassium 4.2 Chloride 101 Carbon Dioxide 31 BUN 22 H Creatinine 0.82 Estimated GFR > 60 BUN/Creatinine Ratio 26.8 H Glucose 91 Hemoglobin A1c Calcium 9.2 Magnesium 2.3 Total Bilirubin 0.7 AST 32 ALT 33 Alkaline Phosphatase 54 Total Creatine Kinase 163 CK-MB (CK-2) 2.53 H CK-MB (CK-2) Rel Index 1.6 Troponin I < 0.012 Total Protein 7.9 Albumin 4.8 Globulin 3.1 Albumin/Globulin Ratio 1.5 Triglycerides Cholesterol LDL Cholesterol, Calc HDL Cholesterol Lipase 77 TSH SARS-CoV-2 (PCR) 05/07/22 05/07/22 05/07/22 14:50 17:16 18:55 WBC RBC Hgb Hct MCV MCH MCHC RDW Plt Count Neut % (Auto) Lymph % (Auto) [place] % (Auto) Eos % (Auto) Baso % (Auto) Neut # (Auto) Lymph # (Auto) [place] # (Auto) Eos # (Auto) Baso # (Auto) PT INR APTT Sodium Potassium Chloride Carbon Dioxide BUN Creatinine Estimated GFR BUN/Creatinine Ratio Glucose Hemoglobin A1c 5.2 Calcium Magnesium Total Bilirubin AST ALT Alkaline Phosphatase Total Creatine Kinase CK-MB (CK-2) CK-MB (CK-2) Rel Index Troponin I < 0.012 Total Protein Albumin Globulin Albumin/Globulin Ratio Triglycerides Cholesterol LDL Cholesterol, Calc HDL Cholesterol Lipase TSH SARS-CoV-2 (PCR) Negative 05/07/22 05/08/22 05/08/22 23:34 04:58 04:58 WBC 5.5 RBC 5.27 Hgb 15.1 Hct 45.2 MCV 85.7 MCH 28.7 MCHC 33.4 RDW 14.0 Plt Count 188 Neut % (Auto) 62.4 Lymph % (Auto) 25.8 [place] % (Auto) 9.0 Eos % (Auto) 2.1 Baso % (Auto) 0.7 Neut # (Auto) 3400 Lymph # (Auto) 1400 [place] # (Auto) 500 Eos # (Auto) 100 Baso # (Auto) 0 PT INR APTT Sodium Potassium Chloride Carbon Dioxide BUN Creatinine Estimated GFR BUN/Creatinine Ratio Glucose Hemoglobin A1c Calcium Magnesium 2.2 Total Bilirubin AST ALT Alkaline Phosphatase Total Creatine Kinase CK-MB (CK-2) CK-MB (CK-2) Rel Index Troponin I < 0.012 Total Protein Albumin Globulin Albumin/Globulin Ratio Triglycerides 165 H Cholesterol 183 LDL Cholesterol, Calc 108 H HDL Cholesterol 42 Lipase TSH SARS-CoV-2 (PCR) 01/05/08/22 05/08/22 04:58 04:58 04:58 WBC RBC Hgb Hct MCV MCH MCHC RDW Plt Count Neut % (Auto) Lymph % (Auto) [place] % (Auto) Eos % (Auto) Baso % (Auto) Neut # (Auto) Lymph # (Auto) [place] # (Auto) Eos # (Auto) Baso # (Auto) PT INR APTT Sodium 139 Potassium 3.9 Chloride 103 Carbon Dioxide 28 BUN 21 H Creatinine 0.76 Estimated GFR > 60 BUN/Creatinine Ratio 27.6 H Glucose 79 L Hemoglobin A1c Calcium 8.6 Magnesium Total Bilirubin 0.7 AST 28 ALT 30 Alkaline Phosphatase 48 Total Creatine Kinase CK-MB (CK-2) CK-MB (CK-2) Rel Index Troponin I Total Protein 6.5 Albumin 4.0 Globulin 2.5 Albumin/Globulin Ratio 1.6 Triglycerides Cholesterol LDL Cholesterol, Calc HDL Cholesterol Lipase TSH 3.51 Cancelled SARS-CoV-2 (PCR) [facility] Medical History Bowel habit changes (04/2020) Hypertension Iliotibial band tendinitis of left side Skin lesions, generalized Surgical History History of hernia repair (2018) Family History Mother Ovarian cancer Hypertension Father Pancreatic cancer Brother Hypertension Social History household members: spouse Smoking Status: Never smoker alcohol intake: current Discharge Plan Discharge Plan Patient Disposition: Home Provider Discharge Comment: You were admitted to the hospital with chest pain. Evaluation thus far has been reassuring with no evidence of heart attack and a normal ultrasound of your heart. Please follow up with PCP office for further evaluation including stress testing. You may need to get an order from Dr. Shipman's office for outpatient stress test. Discharge orders & Medications Prescriptions: Continued co Q10-red yeast rice 25-600 mg capsule 1 cap PO .qd Label Comments: patient took a break but will resume atenolol 25 mg tablet 25 mg PO DAILY Qty: 90 1RF Follow up/Referrals: Zana Shipman DO [Primary Care Provider] - Other Ambulatory Orders: Exercise treadmill NON NUC (Routine) Timeframe: 3 Days Facility: [facility] - Location: Radiology Ordered By: Sekou Perez Diet/Activity/Treatments Diet: Diet as Tolerated Activity: As tolerated Visit Report/Discharge Packet Instructions: Cardiac Stress Test, DI for Atypical Chest Pain, DI for Chest Pain Stand Alone Forms: Patient Portal/API, Stroke Signs & Symptoms Discharge Data Primary Care Provider: Zana Shipman Attending Provider: Sekou Perez VTE Deep Vein Thrombosis/Pulmonary Embolism Present on Admission: No
--- NOTE | 2022-05-08 13:33 | CM.DANOTE ---
DCP: Assessment, Pt is a 61 yo male who admitted to ED on 05/07/2022 via pov with Left sided chest pain related to Acute Coronary Syndrome. He has a hx of Hypertension and per report he was diagnosed with Atrial fibrillation in his 40's. PCP: Zana Shipman Payor: [facility] This CM met with pt in his room with his present. Introduced self and role. He was A+Ox4 and sitting up in bed. Pt confirms that he lives with his in [place], drives at baseline and does not use DME at home. Triple troponin's negative. Echocardiogram pending this am. Pt will have out patient stress test next week. P: Discharge home with today pending echocardiogram results. Kate Mullen RN Case Manager Discharge Planning/Care Management Advanced directive, confirm from FAMILY Start: 05/07/22 23:55 Freq: Q24H Status: Active Protocol: Document 05/08/22 00:00 MS (Rec: 05/08/22 00:27 MS [id number]) Advance Directive, confirm on record Time 00:27 Person contacted Pt Copy received No CM Discharge Assessment Start: 05/08/22 13:21 Freq: Status: Active Protocol: Document 05/08/22 13:31 JS (Rec: 05/08/22 13:33 JS [id number]) Discharge Planning Assessment Assigned [employer] Kate Mullen RN Case Manager Advance Directives? No History Provided By Patient Prior Living Arrangements House Household Members spouse Type of transporation used prior to Drives own vehicle admit Independent with ADL's Yes Is patient alert and oriented? Yes Caregiver for Another No Barriers to Discharge No Discharge Plan Home Transportation Arrangement will transport Referrals Initiated None needed Whiteboard Updated in Patient Room with Yes name and ext. # of [employer] Review Status In Process Next Review Type Continued Stay Review
--- NOTE | 2022-05-08 14:25 | PC.NURSE ---
Day shift: Pt left unit at approx 1415. He wanted to ambulate to car and he did very well. VS WNL. RA 99%. No c/o chest pain. No new MD scripts. Paperwork signed and all questions answered. Pt encouraged to call PCP for out Pt stress test. Pt has all personal belongings. Pt's Spouse in room for teachings and support.
== END 2022-05-08 14:26 | disposition home or self-care (01) ==
LOC: ED 18:28 → AC 18:35
PROVIDERS: Nurse Practitioner Family; Admitting Provider Internal Medicine; Emergency Provider Emergency Medicine; PCP Family Medicine; Referring Provider Emergency Medicine; Visit Provider Internal Medicine
DX: R07.9 Chest pain, unspecified (principal); I48.91 Unspecified atrial fibrillation; E78.5 Hyperlipidemia, unspecified; I10 Essential (primary) hypertension; Z20.822 Contact with and (suspected) exposure to COVID-19
CPT/HCPCS: 36415; 71045; 80053; 80061; 82550; 82553; 83036; 83690; 83735; 84443; 84484; 85025; 85610; 85730; 87635; 93005; 93306; 96372; 99284; C9803; G0378; J1650

== ENCOUNTER → 2022-06-08 07:42 | Outpatient (CLI) | payer OTHER, SELFPAY ==
[2022-05-07 21:00] VITALS: BMI 24.3
--- NOTE | 2022-06-08 07:44 | DI.NM.S_ITS ---
PROCEDURE: NM EXERCISE TREADMILL NON NUC COMPARISON: None. INDICATIONS: Chest Pain. FINDINGS: Rest ECG sinus rhythm. Ramin protocol 10:43, maximum heart rate 164 bpm (104% peak predicted), maximum systolic blood pressure 190, 11.5 METS, BELÉN -29%. Stress ECG sinus tachycardia, no ST segment changes, rare PVCs. IMPRESSION: Low risk study. No evidence of exercise-induced ischemia or arrhythmia. Normal hemodynamic response. Very good exercise capacity. Dictated by: Eva Valentin D.O. on 06/08/2022 at 16:24 Approved by: Eva Valentin D.O. on 06/08/2022 at 16:27
== END ==
PROVIDERS: PCP Family Medicine; Referring Provider Family Medicine; Visit Provider Family Medicine
DX: R07.9 Chest pain, unspecified (principal)
CPT/HCPCS: 93017

== ENCOUNTER → 2024-08-23 06:58 | Outpatient (CLI) | payer MEDICARE, SELFPAY ==
[2022-05-07 21:00] VITALS: BMI 24.3
[2024-08-23 07:45] LABS: Add Manual Diff / Slide Review NO; Basophils Absolute Auto 0 /uL (0-100); Basophils Percent Auto 0.6 % (0-2); Eosinophils Absolute Auto 100 /uL (0-450); Eosinophils Percent Auto 2.2 % (2-4); Hematocrit 46.1 % (41-53); Hemoglobin 15.5 g/dL (13.5-17.5); Lymphocytes Absolute Auto 1400 /uL (1100-4500); Mean Corpuscular HGB Conc 33.6 % (30-36); Mean Corpuscular Hemoglobin 28.5 PG (26-34); Mean Corpuscular Volume 84.8 fL (80-100); Monocytes Absolute Auto 400 /uL (0-900); Monocytes Percent Auto 8.8 % (3-14); Neutrophils Absolute Auto 2800 /uL (1500-7000); Neutrophils Percent Auto 59.4 % (50-75); Platelet Count 198 X10^3/uL (150-400); Red Blood Cell Count 5.44 X10^6/uL (4.5-5.9); Red Cell Distribution Width 14.6 % (11.6-14.8); White Blood Cell Count 4.8 X10^3/uL (4.5-11.0)
[2024-08-23 08:23] LABS: Alanine Aminotransferase 31 IU/L (<50); Albumin 4.6 g/dL (3.5-5.0); Albumin Globulin Ratio 2.1 (1.0-2.8); Alkaline Phosphatase 44 U/L (38-126); Aspartate Aminotransferase 34 IU/L (17-59); BUN Creatinine Ratio 25.7 (6-22); Bilirubin Total 0.7 mg/dL (0.2-1.3); Blood Urea Nitrogen 27 mg/dL (9-20); Calcium 9.5 mg/dL (8.4-10.2); Carbon Dioxide 31 mmol/L (22-32); Chloride 101 mmol/L (98-107); Cholesterol 190 mg/dL (140-199); Estimated Glomerular Filt Rate > 60 mL/min (>60); Globulin 2.2 g/dL (1.7-4.1); Glucose 88 mg/dL (70-99); HDL Cholesterol 48 mg/dL (40-60); HEMOLYSIS < 15 (0-50); LDL Cholesterol Calculated 113 mg/dL (<100); Potassium 4.7 mmol/L (3.4-5.1); Sodium 139 mmol/L (137-145); Total Protein 6.8 g/dL (6.3-8.2); Triglycerides 144 mg/dL (35-150)
[2024-08-23 08:53] LABS: TSH w/ Reflex to FT4 2.91 uIU/mL (0.47-4.68)
[2024-08-23 08:54] LABS: Prostate Specific Antigen Scrn 2.43 ng/mL (0.1-4.0)
== END ==
LOC: LAB 07:00
PROVIDERS: PCP Family Medicine; Referring Provider Family Medicine; Visit Provider Family Medicine
DX: E03.9 Hypothyroidism, unspecified (principal); Z12.5 Encounter for screening for malignant neoplasm of prostate; Z00.00 Encounter for general adult medical examination without abnormal findings; I10 Essential (primary) hypertension
CPT/HCPCS: 36415; 80053; 80061; 84443; 85025; G0103

== ENCOUNTER → 2024-12-21 07:18 | Outpatient (CLI) | payer MEDICARE, SELFPAY ==
[2022-05-07 21:00] VITALS: BMI 24.3
[2024-12-21 09:14] LABS: Influenza A - CEPHEID Flu A NEGATIVE (NEGATIVE); Influenza B - CEPHEID Flu B NEGATIVE (NEGATIVE)
[2024-12-21 09:17] LABS: COVID-19 CEPHEID 4-PLEX PCR Negative (Negative)
== END ==
PROVIDERS: PCP Family Medicine; Visit Provider Nurse Practitioner Family
DX: R05.1 Acute cough (principal)
CPT/HCPCS: 87637

== ENCOUNTER → 2024-12-21 07:43 | Outpatient (CLI) | payer MEDICARE, SELFPAY ==
[2022-05-07 21:00] VITALS: BMI 24.3
--- NOTE | 2024-12-21 07:45 | DI.RAD.S_ITS ---
PROCEDURE: XR CHEST 2V INDICATIONS: cough TECHNIQUE: 2 views of the chest were acquired. COMPARISON: [facility], CR, XR CHEST 1V, 05/07/2022, 15:03. FINDINGS: Surgical changes and devices: None. Lungs and pleura: Lungs are clear. No pleural effusions or pneumothorax. Mediastinum: Mediastinal contours are normal. Tortuous, stable descending thoracic aorta. Heart size is normal. Bones and chest wall: No suspicious bony abnormalities. Soft tissues appear unremarkable. IMPRESSION: No acute cardiopulmonary abnormality is seen. Dictated by: Alissa Pond M.D. on 12/21/2024 at 9:17 Approved by: Alissa Pond M.D. on 12/21/2024 at 9:17
== END ==
PROVIDERS: PCP Family Medicine; Referring Provider Family Medicine; Visit Provider Nurse Practitioner Family
DX: R05.1 Acute cough (principal)
CPT/HCPCS: 71046; 87637